=== PATIENT | male | born 1990 | race Two or more races ===

== ENCOUNTER 2016-10-13 14:31 | Emergency (ER) | payer OTHER ==
[~2016-10-13] VITALS: Ht 172.7 cm; Wt 78.9 kg
[2016-10-13 14:31] VITALS: BP 138/78
[~2016-10-13 14:31] MED LIST: AUGM875T27 PO; DEXA4TA PO; IBUP800T23 PO; PERC5TAB6 PO; PRIL20TA2 PO
[2016-10-13] MEDS ORDERED: IBUPROFEN 800 MG TAB PO ONE (15:15)
[2016-10-13] MEDS ORDERED: METHOCARBAMOL 500 MG TAB PO ONE (15:15)
[2016-10-13] MEDS ORDERED: IBUP80TA PO (15:16)
[2016-10-13] MEDS ORDERED: ROBA500T PO (15:16)
== END 2016-10-13 15:37 | disposition home or self-care (01) ==
LOC: M ED 15:31
DX: S39.012A Strain of muscle, fascia and tendon of lower back, initial encounter (principal); X50.9XXA Other and unspecified overexertion or strenuous movements or postures, initial encounter; Y92.019 Unspecified place in single-family (private) house as the place of occurrence of the external cause; Y93.89 Activity, other specified; Y99.9 Unspecified external cause status